=== PATIENT | male | born 2000 | race Caucasian/White ===

== ENCOUNTER 2019-08-29 20:44 | Emergency (ER) | payer OTHER ==
[2019-08-29] MEDS ORDERED: GLUCAGON,HUMAN RECOMB 1 MG INJ IV ONE (21:28)
[2019-08-29] MEDS ORDERED: ONDANSETRON HCL INJ/PF 4 MG/2 ML SDV IV ONE (21:28)
--- NOTE | 2019-08-29 21:30 | ER Document Report ---
ED Medical Screen (RME) - General Chief Complaint: Foreign Body Stated Complaint: FOREIGN OBJECT IN THROAT Time Seen by Provider: 08/29/19 21:23 Mode of Arrival: Ambulatory Information source: Patient Notes: Patient reports eating steak this evening around 7:30 PM and having it get caught in his throat. Patient states that he has not been able to keep anything down since then. Patient states that he has been spitting his saliva up. Patient states that he has had similar episodes happen in the past with food such as bread although it typically will soften and pass. Patient without any difficulty breathing. I have greeted and performed a rapid initial assessment of this patient. A comprehensive ED assessment and evaluation of the patient, analysis of test results and completion of the medical decision making process will be conducted by additional ED providers. - Related Data Allergies/Adverse Reactions: No Known Allergies Allergy (Unverified 08/29/19 21:22) Physical Exam - Vital signs Vitals: Temp Pulse Resp BP Pulse Ox 98.3 F 75 20 140/83 H 99 08/29/19 20:53 08/29/19 20:53 08/29/19 20:53 08/29/19 20:53 08/29/19 20:53 - General General appearance: Alert In distress: Mild Notes: Patient occasionally spitting saliva into a bag - Respiratory Respiratory status: No respiratory distress Course - Vital Signs Vital signs: Temp Pulse Resp BP Pulse Ox 98.3 F 75 20 140/83 H 99 08/29/19 20:53 08/29/19 20:53 08/29/19 20:53 08/29/19 20:53 08/29/19 20:53
[2019-08-29] MEDS ORDERED: NITROGLYCERIN 0.4 MG/TAB 25 TAB/BOTTLE SL ONE (22:40)
--- NOTE | 2019-08-29 23:42 | ER Document Report ---
ED General - General Chief Complaint: Foreign Body Stated Complaint: FOREIGN OBJECT IN THROAT Time Seen by Provider: 08/29/19 21:23 Mode of Arrival: Ambulatory - [facility] Notes: Patient is a 19-year-old male who presents emergency department for evaluation of food stuck in his throat. He states he was eating steak and he cannot get it down. He is not able to handle his own secretions at this time. The patient states he has had things like bread stuck in the past, but he states that he is been able to get them to dissolve. He does complain of some heartburn, particularly when he goes to lay down at night. He denies any current pain at this time. He states he felt like things might be improving after glucagon. He has never had endoscopy performed. - Related Data Allergies/Adverse Reactions: No Known Allergies Allergy (Unverified 08/29/19 21:22) Past Medical History - General Information source: Patient - Social History Smoking Status: Current Every Day Smoker Family History: Reviewed & Not Pertinent Patient has suicidal ideation: No Patient has homicidal ideation: No Review of Systems - Review of Systems Constitutional: No symptoms reported EENT: No symptoms reported Cardiovascular: No symptoms reported Respiratory: No symptoms reported Gastrointestinal: See HPI Genitourinary: No symptoms reported Musculoskeletal: No symptoms reported Skin: No symptoms reported Neurological/Psychological: No symptoms reported Physical Exam - Vital signs Vitals: Temp Pulse Resp BP Pulse Ox 98.3 F 75 20 140/83 H 99 08/29/19 20:53 08/29/19 20:53 08/29/19 20:53 08/29/19 20:53 08/29/19 20:53 - Notes Notes: This is a 19-year-old male who appears his stated age, not in acute distress. He does have an emesis bag in front of him, is spitting his saliva into it. Vital signs reviewed, please refer to chart. Head is normocephalic, atraumatic. Pupils equal round, reactive to light. Neck is supple without meningismus. Heart is regular rate and rhythm. Lungs are clear to auscultation bilaterally. Abdomen is soft, nontender, normoactive bowel sounds throughout. Extremities without cyanosis, clubbing. Posterior calves are nontender. Peripheral pulses are equal. Skin is warm and dry. Patient is awake, alert, neurological exam is nonfocal. Course - Re-evaluation Re-evalutation: 08/29/19 23:40 Patient presents emergency department for evaluation. Initially, after glucagon treatment, he stated he thought he was getting improvement, wanted to try to drink something. He did attempt this and was not able to pass any liquids. Since then he has not been able to handle his secretions. I tried nitroglycerin as well with out any significant relief. At this point I contacted Dr. De Guzman, he asked that the patient be moved to major room with endoscopy. Patient was notified. Will place official consult for Dr. De Guzman. 08/30/19 01:16 Dr. De Guzman and the endoscopy team came down to the emergency department. He was able to dislodge the impacted food bolus. The patient tolerated this well. I explained the patient he needs to be on a regular PPI and follow-up with gastroenterology. 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 He is encouraged to follow-up with them and seek out GI for endoscopy. He is told he needs to follow mechanical soft diet voiced understanding to this as well. He is to return to the ED with worsening or new concerning symptoms of any sort. - Vital Signs Vital signs: Temp Pulse Resp BP Pulse Ox 97.9 F 85 13 130/80 H 91 L 08/29/19 23:57 08/29/19 23:57 08/30/19 00:41 08/30/19 00:41 08/30/19 00:41 Discharge - Discharge Clinical Impression: Esophageal obstruction due to food impaction, Esophagitis Condition: Stable Disposition: HOME, SELF-CARE Instructions: Prilosec (Acid Pump Inhibitor) ([facility]), Esophagitis ([facility]), Esophageal Food Impaction ([facility]) Additional Instructions: We were able to dislodge the food from your esophagus today, but you likely will require repeat endoscopy and possible esophageal dilation. Please follow a soft diet as discussed. Start taking the medication as prescribed tomorrow. Follow- up with primary care and seek out gastroenterology referral as soon as possible. Return to the emergency department with worsening or new concerning symptoms of any sort.
[2019-08-29] MEDS ORDERED: ONDANSETRON HCL INJ/PF 4 MG/2 ML SDV ONE (23:56)
[2019-08-29] MEDS ORDERED: DIPHENHYDRAMINE HCL 50 MG/ML VIAL ONE (23:56)
[2019-08-29] MEDS ORDERED: FLUMAZENIL INJ 0.5 MG/5 ML VIAL ONE (23:57)
[2019-08-29] MEDS ORDERED: GLUCAGON,HUMAN RECOMB 1 MG INJ ONE (23:57)
[2019-08-29] MEDS ORDERED: EPINEPHRINE INJ 1 MG/10 ML DISP.SYRIN ONE (23:57)
[2019-08-29] MEDS ORDERED: NALOXONE HCL INJ/PF 0.4 MG/1 ML SDV ONE (23:57)
[2019-08-30] MEDS: MIDAZOLAM 2 MG/2 ML INJ ONE ×4 (00:19→00:30)
[2019-08-30] MEDS: FENTANYL CITRATE INJ/PF 100 MCG/2 ML AMPUL ONE ×2 (00:21→00:29)
--- NOTE | 2019-08-30 00:42 | Operative Report ---
Operative Report DATE OF SURGERY: 08/30/19 PREOPERATIVE DIAGNOSIS: 1. Retained food bolus in esophagus. 2. History of G ERD POSTOPERATIVE DIAGNOSIS: Same with esophagitis OPERATION: 1. Esophagogastroduodenoscopy. 2. Dislodgment of food bolus from the esophagus SURGEON: PURA DE GUZMAN ANESTHESIA: Moderate Sedation TISSUE REMOVED OR ALTERED: Food bolus in the esophagus COMPLICATIONS: None ESTIMATED BLOOD LOSS: None INTRAOPERATIVE FINDINGS: See below PROCEDURE: Informed consent was provided. Sedation was then induced by Dr. De Guzman by the Endo team in trauma room 1 the emergency department.. Monitoring devices were attached. Surgical plan and surgical timeout were conducted. The patient was placed in the left lateral decubitus position. Oral mouthpiece was inserted. The flexible adult upper endoscope was introduced in the oropharynx and passed into the esophagus. With this maneuver, the patient began vomiting up pieces of food. Eventually we are able to reinsert the endoscope down the esophagus through its entire length into the stomach and then into the duodenum. Stomach and duodenum were grossly normal. The patient was brought to eating and belching quite a bit at this time. We visualized the esophagus enough to appreciate no tight stricture however there was evidence of mid esophageal pharyngitis. All of the food particles were either suctioned out or pushed through into the stomach. The scope was withdrawn to the patient's oropharynx. He tolerated procedure well. Recommendations: 1. Dietary modifications 2. Antacid therapy, and GERD management 3. Consider follow-up with a suspect artist on outpatient basis. 4. The above discussed with the emergency department physician
[2019-08-30 01:29] VITALS: BP 117/78
== END 2019-08-30 01:29 | disposition home or self-care (01) ==
LOC: ER 20:44
PROC: 0DC58ZZ Extirpation of Matter from Esophagus, Via Natural or Artificial Opening Endoscopic (ICD-10-PCS; principal; 2019-08-29)
DX: K22.2 Esophageal obstruction (principal); K20.9 Esophagitis, unspecified; R12 Heartburn; F17.200 Nicotine dependence, unspecified, uncomplicated
CPT/HCPCS: 99283; 96374; 43247; J2250; J3010; J1610; J2405; 43235; J0171; J1200; J2310; J3490